=== PATIENT | female | born 1990 | race African-American/Black ===

== ENCOUNTER 2016-10-08 22:17 | Emergency (ER) | payer SELFPAY ==
[~2016-10-08] VITALS: Ht 157.5 cm; Wt 54.7 kg
[~2016-10-08 22:17] MED LIST: BITH CONTROL
[2016-10-09] MEDS ORDERED: KETOROLAC 60MG/2ML VIAL IM ONE (02:45)
[2016-10-09] MEDS ORDERED: LIDOCAINE HCL 1% 20ML VIAL (Pyxis) INJ INFIL ONE (03:15)
[2016-10-09 05:00] VITALS: BP 136/81
[2016-10-09] MEDS ORDERED: BACITRACIN ZINC OINT UDPKT TOP ONE (06:00)
== END 2016-10-09 05:56 | disposition home or self-care (01) ==
LOC: ER 10-09 03:21
PROC: 0HQFXZZ Repair Right Hand Skin, External Approach (ICD-10-PCS; principal; 2016-10-09)
DX: S61.210A Laceration without foreign body of right index finger without damage to nail, initial encounter (principal); W25.XXXA Contact with sharp glass, initial encounter; Y93.G1 Activity, food preparation and clean up; Y92.89 Other specified places as the place of occurrence of the external cause
CPT/HCPCS: 12002; 73130; 96372; 99284; J1885; J3490; Z7610

== ENCOUNTER 2019-04-24 18:13 | Observation (INO) | payer MEDICAID ==
[~2019-04-24] VITALS: Ht 157.5 cm; Wt 63.5 kg
[2019-04-24] MEDS ORDERED: PNV1TABL76 PO (18:23)
[2019-04-24 19:39] LABS: CLARITY URINE CLOUDY (CLEAR); COLOR URINE YELLOW (YELLOW); KETONES URINE 3+ (NEGATIVE); LEUKOCYTE ESTERASE URINE 2+ (NEGATIVE); NITRITE URINE NEGATIVE (NEGATIVE); OCCULT BLOOD URINE NEGATIVE (NEGATIVE); PH URINE 5.5 (4.5-8.0); PROTEIN URINE NEGATIVE (NEGATIVE); SPECIFIC GRAVITY URINE 1.016 (1.005-1.030); UROBILINOGEN URINE 0.2 E.U./dL (0.2-1.0)
[2019-04-24] MEDS ORDERED: LACTATED RINGERS 1,000 ML IV SCH (20:45)
[2019-04-24] MEDS ORDERED: CEFAZOLIN 2,000 MG in DEXT 5% WATER 100 ML IV SCH (20:45)
[2019-04-24] MEDS ORDERED: TERBUTALINE SULFATE 1MG/ML VIAL SUBCUT PRN (22:00)
== END 2019-04-24 23:45 | disposition home or self-care (01) ==
LOC: 8 EST LDRP 18:13
PROVIDERS: ADMIT Obstetrics & Gynecology; ATTEND Obstetrics & Gynecology
DX: O26.893 Other specified pregnancy related conditions, third trimester (principal); R10.30 Lower abdominal pain, unspecified; Z3A.27 27 weeks gestation of pregnancy
CPT/HCPCS: 76805; 76818; 81003; 96365; 96372; 99281; G0378; J0690; J3105; J7060; 96360

== ENCOUNTER 2019-05-07 08:48 | Observation (INO) | payer MEDICAID ==
[~2019-05-07] VITALS: Ht 157.5 cm; Wt 82.6 kg
[~2019-05-07 08:48] MED LIST changes: -BITH CONTROL; +PNV1TABL76 PO
== END 2019-05-07 10:10 | disposition home or self-care (01) ==
LOC: 8 EST LDRP 08:48
PROVIDERS: ADMIT Obstetrics & Gynecology; ATTEND Obstetrics & Gynecology
DX: O26.893 Other specified pregnancy related conditions, third trimester (principal); R51 Headache; R05 Cough; Z3A.29 29 weeks gestation of pregnancy
CPT/HCPCS: 99281; G0378